=== PATIENT | male | born 1955 | race Caucasian/White ===

== ENCOUNTER 2020-12-08 17:10 | Emergency (ER) | payer MEDICARE, SELFPAY ==
--- NOTE | 2020-12-08 17:24 | ED_ITS ---
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 On arrival to emergency department patient was pulseless, asystole, CPR was in progress, left AC IV access was established, patient was given epinephrine 1 mg IV x3 with no change response, fingerstick was 65 patient was given 1 amp of bicarb, with no change. Patient's temperature was95 degree. The case was pronounced at 17 20, the case was discussed with medical sales case was declined case #[id number]. Related Data Home Medications Medication Instructions Recorded Confirmed levothyroxine 200 mcg tablet 200 mcg PO DAILY 09/01/20 lisinopril 10 mg tablet 10 mg PO DAILY 09/01/20 metoprolol succinate 25 mg 25 mg PO DAILY 09/01/20 tablet,extended release 24 hr metoprolol succinate 50 mg 50 mg PO DAILY 09/01/20 tablet,extended release 24 hr peg-electrolyte solution 420 gram ml PO 09/01/20 oral solution rosuvastatin 10 mg tablet mg PO 09/01/20 Allergies Allergy/AdvReac Type Severity Reaction Status Date / Time No Known Allergies Allergy Verified 12/08/20 17:50 Review of Systems Review of Systems: Unable to obtain due to cardiac arrest. [facility] Social History Social History Advance Directives: No Advance Directives Information Provided: No Physical Exam Vital Signs: Vital Signs: On obtainable General: Unresponsive.. Head and neck exam: Pupil is 4 mm fixed no response to light, bilateral subconjunctival hemorrhage probably secondary to CPR. ET tube is in place with good breathing sounds. No sign of trauma to the head and neck. Heart/lungs exam: No cardiac activities checked by ultrasound, ET tube in place with good bilateral air entry. Abdomen: Distended, no bowel sounds. Extremities: Cool to touch with no pulse. Back exam: Sign of dependent lividity. Neuro exam: Unobtainable due to cardiac arrest and unresponsiveness. Course Course Course Narrative: Assessment and plan. 65 years old male known cardiac history/hypertension/thyroid disease found unr esponsive by family initial rhythm and rate was pulseless and asystole. Patient was declined by medical sales. 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 Today did not complain of chest pain or shortness of breath or dizziness. Time: 18:31 Discharge Plan Discharge Clinical Impression: Cardiac arrest Patient Disposition: Date/Time: 12/08/20 17:20
--- NOTE | 2020-12-08 18:06 | PC.NURSE ---
[facility] contacted at 1800
--- NOTE | 2020-12-08 18:27 | PC.NURSE ---
[facility] placing patient on possible donor list. will call back at 1999 to confirm some specific details.
[2020-12-10 11:16] LABS: Glucose, Whole Blood 76 mg/dL (60-115)
== END 2020-12-09 08:00 | disposition expired ==
LOC: HO.ED 17:51
PROVIDERS: Emergency Provider Emergency Medicine
DX: I46.9 Cardiac arrest, cause unspecified (principal); I10 Essential (primary) hypertension
CPT/HCPCS: 82947; 96374; 96375; 99285; J0171